=== PATIENT | female | born 2000 | race African-American/Black ===

== ENCOUNTER → 2024-04-18 | Outpatient (CLI) | payer OTHER ==
[2024-04-22 13:27] LABS: MUMPS VIRUS IgG ANTIBODY > 300.00 AU/mL (>10.99); RUBEOLA IgG ANTIBODY < 13.50 AU/mL (>16.49)
[2024-04-23 11:42] LABS: QuantiFERON-TB Gold Plus NEGATIVE (NEGATIVE)
[2024-04-23 15:34] LABS: HBV IU/mL NOT DETECTED (NOT DETECTED); log 10 HBV IU/mL NOT DETECTED Log IU/mL (NOT DETECTED)
== END ==
LOC: M LAB 10:46
PROVIDERS: ATTEND Nurse Practitioner Adult Health
DX: Z11.1 Encounter for screening for respiratory tuberculosis (principal); Z11.59 Encounter for screening for other viral diseases; Z11.52 Encounter for screening for COVID-19

== ENCOUNTER → 2024-05-30 | Outpatient (REF) | LOC: M LAB 11:28 | PROVIDERS: ATTEND Family Medicine | DX: Z00.00 Encounter for general adult medical examination without abnormal findings (principal) ==

== ENCOUNTER → 2025-02-25 | Outpatient (CLI) | payer OTHER ==
[2025-02-25 17:57] LABS: PLATELET COUNT, AUTOMATED 197 10^3/uL (150-450)
[2025-02-25 18:37] LABS: HIV 1&2 SCREEN NEGATIVE (NEGATIVE)
[2025-02-25 18:45] LABS: HEPATITIS C VIRUS ABY INDEX 0.15 INDEX (<0.8)
[2025-02-25 20:23] LABS: Trichomonas vaginalis (AMP) NOT DETECTED (NEGATIVE)
[2025-02-25 20:47] LABS: GC DNA AMPLIFICATION NEGATIVE (NEGATIVE)
== END ==
LOC: M PLALAB 13:37
PROVIDERS: ATTEND Obstetrics & Gynecology
DX: Z34.91 Encounter for supervision of normal pregnancy, unspecified, first trimester (principal)

== ENCOUNTER → 2025-03-16 | Outpatient (CLI) | payer OTHER | LOC: M PLALAB 12:20 | PROVIDERS: ATTEND Obstetrics & Gynecology | DX: Z34.90 Encounter for supervision of normal pregnancy, unspecified, unspecified trimester (principal); Z3A.08 8 weeks gestation of pregnancy ==

== ENCOUNTER → 2025-05-11 | Outpatient (CLI) | payer OTHER ==
[~2025-05-11] MED LIST: DICL10TA PO; PEPC1TAB5 PO
== END ==
LOC: M WHC 10:16
PROVIDERS: ATTEND Nurse Practitioner Family
DX: Z34.82 Encounter for supervision of other normal pregnancy, second trimester (principal); Z3A.18 18 weeks gestation of pregnancy

== ENCOUNTER → 2025-07-02 | Outpatient (CLI) | payer OTHER ==
[2025-07-02 15:00] LABS: PLATELET COUNT, AUTOMATED 150 10^3/uL (150-450)
[2025-07-02 15:03] LABS: GLUCOSE CHALLENGE TEST 1 HOUR 91 MG/DL (LESS THAN 140)
[2025-07-02 15:35] LABS: HIV 1&2 SCREEN NEGATIVE (NEGATIVE)
[2025-07-02 15:45] LABS: HEPATITIS C VIRUS ABY INDEX < 0.02 INDEX (<0.8)
== END ==
LOC: M PLALAB 10:29
PROVIDERS: ATTEND Nurse Practitioner Family
DX: Z34.82 Encounter for supervision of other normal pregnancy, second trimester (principal)

== ENCOUNTER → 2025-07-23 | Outpatient (CLI) | payer OTHER | LOC: M WHC 13:03 | PROVIDERS: ATTEND Nurse Practitioner Family | DX: Z34.83 Encounter for supervision of other normal pregnancy, third trimester (principal); Z3A.29 29 weeks gestation of pregnancy ==